=== PATIENT | male | born 1980 | race Caucasian/White ===

== ENCOUNTER → 2024-09-15 08:10 | Outpatient (REF) | payer BC, SELFPAY | LOC: RCS 08:10 | PROVIDERS: ATTENDING PHYSICIAN Internal Medicine Cardiovascular Disease; FAMILY PHYSICIAN Physician Assistant Medical | DX: I95.1 Orthostatic hypotension (principal); I45.10 Unspecified right bundle-branch block | CPT/HCPCS: 93306 ==